=== PATIENT | female | born 1975 | race Caucasian/White ===

== ENCOUNTER → 2016-03-20 09:24 | Outpatient (CLI) | payer MEDICAID | END | disposition home or self-care (01) | LOC: D.MRI 09:24 | DX: M54.2 Cervicalgia (principal) ==

== ENCOUNTER 2017-06-30 11:02 | Emergency (ER) | payer MEDICAID ==
[2017-06-30 11:34] LABS: BASOPHILS 0.1 % (0-2); EOSINOPHILS 0.1 % (0-7); HEMATOCRIT 42.1 % (36.0-48.0); HEMOGLOBIN 14.5 g/dL (12-16); IMMATURE GRANULOCYTES 0.2 % (0-5); LYMPHOCYTES 2.8 % (15-50); MCH 31.5 pg (26.0-34.0); MCHC 34.4 g/dL (31.0-37.0); MCV 91.3 fL (80.0-100.0); MONOCYTES 6.4 % (2-11); NEUTROPHILS 90.4 % (40-80); PLATELET COUNT 175 10x3/uL (130-400); RBC 4.61 10x6/uL (4.00-5.40); WBC 14.1 10x3/uL (4.8-10.8)
[2017-06-30 11:59] LABS: HCG URINE NEGATIVE (NEGATIVE)
[2017-06-30 12:00] LABS: ANION GAP 17.9 mmol/L (8-16); BILIRUBIN - TOTAL 0.7 mg/dL (0.2-1.3); CALCIUM 8.6 mg/dL (8.5-10.1); CARBON DIOXIDE 21.5 mmol/L (21.0-32.0); CREATININE - SERUM 0.9 mg/dL (0.6-1.3); POTASSIUM - SERUM 3.4 mmol/L (3.5-5.1); PROTEIN - SERUM 7.5 g/dL (6.4-8.2)
[2017-06-30 12:06] LABS: APPEARANCE HAZY (CLEAR); BILIRUBIN NEGATIVE (NEGATIVE); COLOR YELLOW (YELLOW); GLUCOSE NEGATIVE (NEGATIVE); KETONE MODERATE mg/dL (NEGATIVE); NITRITE NEGATIVE (NEGATIVE); PROTEIN NEGATIVE (NEGATIVE); UROBILINOGEN NORMAL (NORMAL)
[2017-06-30 12:07] LABS: BACTERIA MANY /hpf (NONE SEEN); EPITHELIAL CELLS 0-5 /hpf (0-5); RED CELLS - URINE 0-5 /hpf (0-5); WHITE CELLS - URINE 0-5 /hpf (0-5)
== END 2017-06-30 14:10 | disposition home or self-care (01) ==
LOC: D.ER 11:02
PROVIDERS: Family Medicine; Nurse Practitioner Family
DX: K52.9 Noninfective gastroenteritis and colitis, unspecified (principal); R11.10 Vomiting, unspecified

== ENCOUNTER 2017-10-12 15:01 | Emergency (ER) | payer MEDICAID ==
[~2017-10-12] VITALS: Ht 170.2 cm; Wt 68.2 kg
[2017-10-12 15:06] VITALS: Ht 170.2 cm; Wt 68.2 kg
[2017-10-12] MEDS ORDERED: MOBIC7.5 MG PO (15:07)
[2017-10-12] MEDS ORDERED: VALTREX500 MG (15:08)
[2017-10-12] MEDS ORDERED: VOLTAREN75 MG PO (17:55)
[2017-10-12] MEDS ORDERED: ROBAXIN-750750 MG PO (17:55)
[2017-10-12 18:14] VITALS: BP 132/89
== END 2017-10-12 18:16 | disposition home or self-care (01) ==
LOC: D.ER 15:01
DX: S16.1XXA Strain of muscle, fascia and tendon at neck level, initial encounter (principal); V43.52XA Car driver injured in collision with other type car in traffic accident, initial encounter; Y93.89 Activity, other specified; Y92.410 Unspecified street and highway as the place of occurrence of the external cause; M25.512 Pain in left shoulder

== ENCOUNTER 2018-08-27 19:00 | Outpatient (CLI) | payer MEDICAID ==
[2017-10-12 15:06] VITALS: BMI 23.5
[~2018-08-27 19:00] MED LIST: MOBIC7.5 MG PO; ROBAXIN-750750 MG PO; VALTREX500 MG; VOLTAREN75 MG PO
== END 2018-08-27 23:59 | disposition home or self-care (01) ==
LOC: D.MAMMO 19:00
PROVIDERS: ATTEND Nurse Practitioner Family
DX: Z12.31 Encounter for screening mammogram for malignant neoplasm of breast (principal)